=== PATIENT | male | born 1985 | race Caucasian/White ===

== ENCOUNTER 2021-09-17 19:53 | Emergency (ER) | payer OTHER ==
[2021-09-17 21:37] LABS: BASOPHIL 0.6 % (0-2); EOSINOPHIL 0.2 % (0-5); HCT 47.3 % (42.0-52.0); HGB 16.7 g/dl (13.2-18.0); LYMPHOCYTE 13.6 % (15-48); MCH 31.3 pg (25.0-31.0); MCHC 35.3 g/dL (32.0-36.0); MCV 88.6 fL (78.0-100.0); MONOCYTE 6.8 % (0-12); MPV 9.1 fL (6.0-9.5); NEUTROPHIL 78.2 % (41-80); NRBC 0; PLT 260 K/uL (150-400); RBC 5.34 M/uL (4.70-6.00); WBC 10.4 K/uL (4.0-10.5)
[2021-09-17 21:46] LABS: CORONAVIRUS 2019 SARS-COV-2 POSITIVE (NEGATIVE); INFLUENZA A NAA NEGATIVE (NEGATIVE)
[2021-09-17 21:52] LABS: BUN/CREAT RATIO (CALC) 8.4 RATIO; CREATININE 0.95 mg/dL (0.67-1.17); POTASSIUM 3.9 mmol/L (3.5-5.1)
[2021-09-17 21:59] LABS: BILIRUBIN NEGATIVE (NEGATIVE); BLOOD TRACE-INTACT Ery/uL (NEGATIVE); CLARITY CLEAR (CLEAR); COLOR YELLOW (YELLOW); GLUCOSE (U) NORMAL (NORMAL); LEUKOCYTES NEGATIVE Leu/uL (NEGATIVE); NITRITE NEGATIVE (NEGATIVE); PROTEIN NEGATIVE (NEGATIVE); SPECIFIC GRAVITY 1.015 (1.001-1.030); UROBILINOGEN 0.2 mg/dL (0.2-1.0)
[2021-09-17 22:11] LABS: MARIJUANA (THC) POSITIVE (NEGATIVE)
[2021-09-17 22:12] LABS: AMPHETAMINES NEGATIVE (NEGATIVE); BARBITURATES NEGATIVE (NEGATIVE); ECSTASY (MDMA) NEGATIVE (NEGATIVE); METHADONE NEGATIVE (NEGATIVE); OPIATES NEGATIVE (NEGATIVE); OXYCODONE NEGATIVE (NEGATIVE)
[2021-09-17 22:13] LABS: URINARY RBC RARE; URINARY WBC RARE
== END 2021-09-17 22:58 | disposition home or self-care (01) ==
LOC: FER 19:53
PROVIDERS: Nurse Practitioner Family
DX: U07.1 COVID-19 (principal); F12.929 Cannabis use, unspecified with intoxication, unspecified; R42 Dizziness and giddiness
CPT/HCPCS: 36415; 80048; 80305; 81001; 85025; 99284; J7030; U0002

== ENCOUNTER 2021-09-22 21:02 | Emergency (ER) | payer OTHER ==
[2021-09-23 01:02] LABS: ALBUMIN 4.1 g/dL (3.4-5.0); BILIRUBIN - TOTAL 0.5 mg/dL (0.2-1.0); BUN/CREAT RATIO (CALC) 13.5 RATIO; CREATININE 0.89 mg/dL (0.67-1.17); GLOBULIN (CALCULATION) 2.8 g/dL; POTASSIUM 3.9 mmol/L (3.5-5.1); TOTAL PROTEIN 6.9 g/dL (6.4-8.2)
[2021-09-23] MEDS ORDERED: ANTIVERT25 MG PO (02:45)
[2021-09-23] MEDS ORDERED: ONDANSETRON ODT4 MG SL (02:45)
[2021-09-23] MEDS ORDERED: VENTOLIN HFA IN18 GM INH (02:55)
[2021-09-23] MEDS ORDERED: PULMICORT FLE180 MCG INH (02:55)
== END 2021-09-23 03:12 | disposition home or self-care (01) ==
LOC: FER 21:02
PROVIDERS: Emergency Medicine Emergency Medical Services
DX: U07.1 COVID-19 (principal); R42 Dizziness and giddiness
CPT/HCPCS: 36415; 71045; 80053; 82728; 85379; 93005; 94640; 94664

== ENCOUNTER 2021-09-26 14:55 | Emergency (ER) | payer OTHER ==
[~2021-09-26] VITALS: Ht 172.7 cm; Wt 104.3 kg
[~2021-09-26 14:55] MED LIST: ANTIVERT25 MG PO; ONDANSETRON ODT4 MG SL; PULMICORT FLE180 MCG INH; VENTOLIN HFA IN18 GM INH
[2021-09-26 15:36] LABS: BASOPHIL 0.6 % (0-2); EOSINOPHIL 0.5 % (0-5); HCT 51.8 % (42.0-52.0); HGB 18.4 g/dl (13.2-18.0); LYMPHOCYTE 18.6 % (15-48); MCH 31.5 pg (25.0-31.0); MCHC 35.5 g/dL (32.0-36.0); MCV 88.5 fL (78.0-100.0); MPV 9.2 fL (6.0-9.5); NEUTROPHIL 71.9 % (41-80); NRBC 0; PLT 317 K/uL (150-400); RBC 5.85 M/uL (4.70-6.00); RDW 11.9 % (11.5-14.0)
[2021-09-26 15:41] LABS: INR 1.04 (0.9-1.2); PTT 30.5 SECONDS (24.4-34.7)
[2021-09-26 15:43] LABS: D-DIMER 0.54 ug/mLFEU (0.00-0.41)
[2021-09-26 15:49] LABS: BUN/CREAT RATIO (CALC) 14.9 RATIO; CREATININE 0.94 mg/dL (0.67-1.17); POTASSIUM 3.8 mmol/L (3.5-5.1)
[2021-09-26 16:47] LABS: BILIRUBIN NEGATIVE (NEGATIVE); BLOOD TRACE-INTACT Ery/uL (NEGATIVE); CLARITY CLEAR (CLEAR); COLOR YELLOW (YELLOW); GLUCOSE (U) NORMAL (NORMAL); LEUKOCYTES NEGATIVE Leu/uL (NEGATIVE); NITRITE NEGATIVE (NEGATIVE); PROTEIN NEGATIVE (NEGATIVE); UROBILINOGEN 0.2 mg/dL (0.2-1.0)
[2021-09-26 16:49] LABS: AMPHETAMINES NEGATIVE (NEGATIVE); BARBITURATES NEGATIVE (NEGATIVE); ECSTASY (MDMA) NEGATIVE (NEGATIVE); MARIJUANA (THC) POSITIVE (NEGATIVE); METHADONE NEGATIVE (NEGATIVE); OPIATES NEGATIVE (NEGATIVE); OXYCODONE NEGATIVE (NEGATIVE)
[2021-09-26 16:53] LABS: SQUAMOUS EPITHELIAL CELLS RARE; URINARY RBC RARE
== END 2021-09-26 17:32 | disposition home or self-care (01) ==
LOC: FER 14:55
PROVIDERS: Nurse Practitioner Family
DX: R07.89 Other chest pain (principal)
CPT/HCPCS: 36415; 71045; 71275; 80048; 80305; 81001; 84484; 85025; 85379; 85610; 85730; 93005; J7030; Q9967